=== PATIENT | female | born 1955 | race Caucasian/White ===

== ENCOUNTER 2023-06-17 09:43 | Observation (INO) ==
--- NOTE | 2023-06-17 10:41 | Emergency Department Note ---
Impression & Plan Palpitation, Hypertension, Chest pain, Dyspnea ED Provider Note ED Provider Note NAME: DAVIS SÁNCHEZ AGE:67 SEX: Female : 1955 ARRIVES VIA: Private vehicle INFORMANT: Patient ED PROVIDER(s): Chacha Pavon DO CHIEF COMPLAINT: Palpitations, chest pain, shortness of breath HPI: This is a 67-year-old female presents emergency department due to concern for chest pain, palpitations, shortness of breath. Patient states she first began noticing palpitations a month ago. She follows with rheumatology due to a history of sarcoidosis and was noted to have high blood pressure at that time. Patient stated she had had an upcoming appointment with her PCP. She contacted her PCP sooner and her usual losartan was increased. She then saw a different primary care provider in the office who scheduled her for an echo and referred her to cardiology. She states her echo was abnormal and cardiology also stated that she had episodes of tachycardia and PVCs additionally. She states no other change in medications. No other recent illness. No prior heart history although notes first-degree family member did in their 50s of heart problems. She states she feels a sense of "thundering and pause" in her chest with the palpitations giving her a central and slightly left-sided chest pain. She states symptoms seem worse at night or laying down. She thought initially this was related to reflux so she did try sitting up and taking Tums however that did not significantly improve her symptoms. She states cardiology scheduled her for an outpatient CAT scan of the chest and also suggested she needed an MRI of her heart. PAST MEDICAL HISTORY:See Below PAST SURGICAL HISTORY:See Below FAMILY HISTORY:See Below SOCIAL HISTORY:See Below HOME MEDICATIONS:See Below ALLERGIES:See Below VITALS:See Below PHYSICAL EXAMINATION: GENERAL: alert, uncomfortable appearing, well nourished, no distress, non-toxic EYE EXAM: normal conjunctiva, PERRL and EOM's grossly intact OROPHARYNX: no exudate, no erythema, lips, buccal mucosa, and tongue normal and mucous membranes are moist NECK: supple, no nuchal rigidity, no adenopathy, non-tender LUNGS: Clear to auscultation. Normal chest wall mechanics, no w/r/r HEART: no murmurs, S1 normal and S2 normal ABDOMEN: abdomen soft, non-tender, normo-active bowel sounds, no masses, no rebound or guarding. BACK: Back is symmetrical on inspection and there is no deformity, no midline tenderness, no CVA tenderness. SKIN: no rashes, petechiae, orbruising UPPER EXTREMITIES: upper extremities are grossly normal. FROM, nml pulses b/l. LOWER EXTREMITIES: No pitting edema. FROM, nml pulses b/l. NEURO EXAM: Normal sensorium, cranial nerves II-XII grossly intact, normal speech, no facial droop,nogross weakness of arms, no gross weakness of legs. Gross sensation intact. No ataxia. Vital Signs: reviewed and remarkable Differential Diagnosis: acute coronary syndrome, pericarditis, pulmonary embolus, aortic dissection, pneumonia, pneumothorax, musculoskeletal pain, shingles, GERD, GI bleed, as well as others were considered MEDICAL DECISION MAKING: This is a 67 yo female who presents to the ER with concern for chest pain and palpitations. Patient afebrile vital signs stable. Labs drawn and sent, IV established, EKG performed at bedside interpreted by me and patient monitored on telemetry. Patient complained of persistent palpitations and was noted to have occasional PVCs with compensatory pause on telemetry. Patient's lab reassuring. Did review recent outpatient cardiology evaluation by Dr. Torres as well as outpatient echo. I did contact on-call not any cardiology Dr. Kohler, who stated Dr. Torres was available. Dr. Torres contacted via [place] text and recommended admission for additional monitoring and possible further evaluation. He did recommend pursuing CT of the chest without contrast that he had previously ordered for the patient as an outpatient. All results and plan were discussed with the patient at bedside. She was hemodynamically stable throughout. Patient verbalized understanding of the plan and was in agreement. Case discussed with the hospitalist team for additional evaluation and management. Consultation(s): 1345: Discussed with Dr. Kohler, [place] processor grain. 1348: Discussed with Dr. Torres via [place] text. He would like patient admitted. He does still want the CT chest as previously ordered. 1410: Discussed with VIKTOR Cope with [facility] hospitalist team. ER Treatment Provided: See below Diagnostics Interpreted By Me: -ECG: Normal sinus at 71, normal axis, normal intervals, appearance of incomplete right bundle branch block, nonspecific ST/T wave -Cardiac Monitoring: An order was placed for continuous cardiac monitoring. The monitor shows a rate of 66 with normal sinus rhythm. -Laboratory studies: As stated above and show below. Triage Nursing Note Reviewed Prior/Outside Records Reviewed - recent outpatient echo Past Med/Surg History Medical History Dyslipidemia Aortic calcification Colon cancer screening 09/18/2022, next in 5 years Nausea and vomiting after administration of anesthetic agent Arthritis H/O sigmoidoscopy Hx of migraines Complex regional pain syndrome HLD (hyperlipidemia) HTN (hypertension) Right rotator cuff tear Hemorrhoids On methotrexate therapy History of sarcoidosis PULMONARY Surgical History H/O hemorrhoidectomy History of anesthesia reaction HIP SURGERY>STAYED OVERNIGHT D/T OXYGEN LEVEL DROPPED History of esophagogastroduodenoscopy (EGD) History of colonoscopy H/O inguinal hernia repair History of tooth extraction History of tonsillectomy and adenoidectomy History of revision of total replacement of left knee joint History of total left knee replacement History of right hip replacement RT Hx of hysterectomy [place] teeth removed History of umbilical hernia repair X 2 Family History Grandfather (Maternal) Colorectal cancer Hypertension Father Myocardial infarction Grandmother (Maternal) Heart disease Denies family history of Ovarian cancer Prostate cancer Breast cancer Social History Smoking Status: Never smoker Age Quit Using Tobacco: 22; Second Hand Exposure: No; Do You Dip or Chew Tobacco: No; Tobacco Cessation Education Requested by Patient: No Hx Alcohol Use: No Hx Substance Use: No Preferred Language: Czech Rotary Operator Required: No Beliefs That Will Affect Care: None marital status: Current Living Situation: Alone Current Living Situation Comment: AND SON current occupational status: retired current occupation: [employer] Other Information That Helps Us Care for You: No Feels Safe at Home: Yes Childhood Exposure to Second-Hand Smoke: Yes Diet: regular Diet Comment: 1500 Calorie Diet caffeine: Yes Dental Care, Regularly: No Physical Activity Frequency: Daily Seatbelt Use: always Sunscreen Use: Yes Assistive Devices: Glasses Allergies Allergies Allergy/AdvReac Type Severity Reaction Status Date / Time ibuprofen Allergy Intermediate Hives Verified 05/29/23 09:30 celecoxib [From Celebrex] Allergy Mild GI issues Verified 05/29/23 09:30 Home Meds Home Medications Medication Instructions Recorded Confirmed multivitamin 1 tab PO QDL 05/29/23 06/17/23 turmeric 2 cap PO QDL 05/29/23 06/17/23 calcium citrate 315 mg 2 tab PO QAM 06/17/23 06/17/23 calcium-vitamin D3 6.25 mcg (250 unit) tablet (Citracal + Vitamin D Maximum) cranberry extract 500 mg capsule 500 mg PO QDL 06/17/23 06/17/23 (Cranberry Concentrate) folic acid 1 mg tablet 1 mg PO QAM 06/17/23 06/17/23 magnesium 250 mg tablet 250 mg PO HS 06/17/23 06/17/23 metoprolol succinate 25 mg 25 mg PO QAM 06/17/23 06/17/23 tablet,extended release 24 hr olmesartan 40 mg tablet 40 mg PO QAM 06/17/23 06/17/23 potassium 99 mg tablet 99 mg PO HS 06/17/23 06/17/23 rosuvastatin 10 mg tablet 10 mg PO QAM 06/17/23 06/17/23 vitamin B complex 1 tab PO QAM 06/17/23 06/17/23 Previous Rx's Medication Instructions Recorded methotrexate sodium 2.5 mg tablet 15 mg (6 x 2.5 mg) PO .COMPLEX #75 11/20/22 tabs zoledronic acid 5 mg/100 mL in See Rx Instructions IV .annually 05/22/23 mannitol 5 %-water intravenous #100 mL piggybck (Reclast) Results & Data (ED) Vital Signs Vital Signs - 24 hr 06/17/23 09:46 06/17/23 10:04 06/17/23 10:22 Temperature 36.6 C Temperature Source Temporal Artery Scan Pulse Rate 95 H 62 62 Pulse Rate [Apical] Pulse Rhythm [Apical] Pulse Strength [Apical] Respiratory Rate 20 13 Respiratory Effort / Characteristics Non-Labored Respiratory Depth Normal Respiratory Pattern Blood Pressure 202/99 H 203/105 H Blood Pressure [Right Arm] Blood Pressure Mean 133 137 Blood Pressure Mean [Right Arm] Blood Pressure Position [Right Arm] Pulse Oximetry 95 97 Oxygen Delivery Method Room Air Room Air Sepsis Recent Fever Within 48 Hours No Sepsis New/Unexplained Change in Mental Status No Sepsis Action Taken by Nursing No Action Required 06/17/23 10:30 06/17/23 11:00 06/17/23 11:30 Temperature Temperature Source Pulse Rate 80 60 62 Pulse Rate [Apical] Pulse Rhythm [Apical] Pulse Strength [Apical] Respiratory Rate 20 19 14 Respiratory Effort / Characteristics Respiratory Depth Respiratory Pattern Blood Pressure 197/80 H 166/78 H 155/73 H Blood Pressure [Right Arm] Blood Pressure Mean 119 107 100 Blood Pressure Mean [Right Arm] Blood Pressure Position [Right Arm] Pulse Oximetry 98 96 95 Oxygen Delivery Method Room Air Room Air Room Air Sepsis Recent Fever Within 48 Hours Sepsis New/Unexplained Change in Mental Status Sepsis Action Taken by Nursing 06/17/23 11:43 06/17/23 12:00 06/17/23 13:00 Temperature Temperature Source Pulse Rate 56 L 59 L Pulse Rate [Apical] 56 L Pulse Rhythm [Apical] Regular Pulse Strength [Apical] Normal Respiratory Rate 17 16 14 Respiratory Effort / Characteristics Non-Labored Spontaneous Respiratory Depth Normal Respiratory Pattern Regular Blood Pressure 156/67 H 169/65 H Blood Pressure [Right Arm] 173/69 H Blood Pressure Mean 96 99 Blood Pressure Mean [Right Arm] 103 Blood Pressure Position [Right Arm] Semi-fowlers Pulse Oximetry 97 97 95 Oxygen Delivery Method Room Air Room Air Room Air Sepsis Recent Fever Within 48 Hours Sepsis New/Unexplained Change in Mental Status Sepsis Action Taken by Nursing 06/17/23 13:31 Temperature Temperature Source Pulse Rate 65 Pulse Rate [Apical] Pulse Rhythm [Apical] Pulse Strength [Apical] Respiratory Rate 20 Respiratory Effort / Characteristics Respiratory Depth Respiratory Pattern Blood Pressure 183/67 H Blood Pressure [Right Arm] Blood Pressure Mean 105 Blood Pressure Mean [Right Arm] Blood Pressure Position [Right Arm] Pulse Oximetry 97 Oxygen Delivery Method Room Air Sepsis Recent Fever Within 48 Hours Sepsis New/Unexplained Change in Mental Status Sepsis Action Taken by Nursing Laboratory Data 06/17/23 10:00 06/17/23 10:00 Lab Results 06/17/23 06/17/23 Range/Units 10:00 12:13 WBC 4.87 (4.8-10.8) K/ul RBC 4.24 (4.20-5.40) M/uL Hgb 13.6 (12.0-16.0) g/dl Hct 39.8 (37.0-47.0) % MCV 93.9 (80.0-100.0) fL MCH 32.1 (25.0-34.0) pg MCHC 34.2 (32.0-36.0) g/dL RDW Std Deviation 48.6 H (36.4-46.3) fL RDW Coeff of Giuseppe 14.2 (11.5-14.5) % Plt Count 197 (130-400) K/uL MPV 10.2 (9.4-12.4) fL Immature Gran % (Auto) 0.2 % Neut % (Auto) 63.1 % Lymph % (Auto) 28.3 % [place] % (Auto) 6.4 % Eos % (Auto) 1.0 % Baso % (Auto) 1.0 % Neut # (Auto) 3.07 (1.40-6.50) K/uL Lymph # (Auto) 1.38 (1.20-3.40) K/uL [place] # (Auto) 0.31 (0.11-0.59) K/uL Eos # (Auto) 0.05 (0.00-0.50) K/uL Baso # (Auto) 0.05 (0.00-0.20) K/uL Immature Gran # (Auto) 0.01 (0.01-0.20) K/uL D-Dimer Cancelled < 190 Sodium 135 L (136-145) mmol/L Potassium 4.0 (3.5-5.1) mmol/L Chloride 101 (98-107) mmol/L Carbon Dioxide 25 (21-32) mmol/L Anion Gap 9 (3-11) BUN 10 (6-23) mg/dl Creatinine 0.64 (0.6-1.2) mg/dl Est Cr Clr Drug Dosing 88.2 ml/min Est GFR ( Amer) 107.8 ml/min Est GFR (Non-Af Amer) 93.0 ml/min BUN/Creatinine Ratio 15.6 (10-20) Glucose 95 (70-99(Fasting)) mg/dl Calcium 9.8 (8.6-10.3) mg/dl Magnesium 2.0 (1.7-2.4) mg/dl Total Bilirubin 0.6 (0.2-1.0) mg/dl AST 45 H (13-39) U/L ALT 49 (7-52) U/L Alkaline Phosphatase 85 (34-104) U/L Troponin I High Sens 3.9 (0-14) pg/ml B-Natriuretic Peptide 184 H (0-100) pg/ml Total Protein 7.3 (6.0-8.3) gm/dl Albumin 4.6 (3.4-5.0) gm/dl Globulin 2.7 (2.5-4.0) gm/dl Albumin/Globulin Ratio 1.7 (0.9-2) Lipase 18 (11-82) U/L TSH 1.261 (0.300-4.500) uIu/ml Administered Medications Discontinued Medications Acetaminophen (Acetaminophen 325 Mg Tab) 650 mg PO NOW STA Stop: 06/17/23 14:55 Last Admin: 06/17/23 15:01 Dose: 650 mg Documented By: JESSIKA Famotidine (Famotidine 20mg/5ml Iv Push) 20 mg IV NOW ONE Stop: 06/17/23 15:01 Last Admin: 06/17/23 15:01 Dose: 20 mg Documented By: JESSIKA Hydrochlorothiazide (Hydrochlorothiazide 25 Mg Tab) 25 mg PO NOW STA Stop: 06/17/23 15:24 Last Admin: 06/17/23 16:00 Dose: 25 mg Documented By: NRDanita Imaging Data Radiologist's Impression: Chest CT 06/17/23 13:50 CT chest diagnostic wo con CT DOSE: 338.55 mGy.cm CLINICAL HISTORY: 67 years-old Female with chest pain, palpitations. Acute chest pain with cardiac palpitations TECHNIQUE: Multiaxial CT images of the chest were performed without contrast. A dose lowering technique was utilized adhering to the principles of ALARA. COMPARISON: Radiographs 05/10/2023 FINDINGS: Unremarkable thyroid. No lymphadenopathy. Mild cardiomegaly. Mild coronary artery calcifications. Left ventricular apical mural fibrofatty changes suggestive of prior infarct. Trace pericardial effusion. No thoracic aortic aneurysm. There is no pneumothorax, pleural effusion or overt pulmonary edema. Mild dependent subsegmental bibasilar atelectasis versus scarring. There are no suspicious pulmonary nodule or mass is identified. Central airways are patent. No acute upper abdominal abnormality. Unremarkable soft tissues. Mild chronic- appearing thoracic wedge deformities. No acute fracture. IMPRESSION: Mild cardiomegaly without acute process of the chest. ACT 112: Negative or not required by law. Electronically signed by: Rustam Tapia M.D. 06/17/2023 2:51 PM Discharge Plan Visit Data Chief Complaint: Cardiac Assessment Stated Complaint: HEART PROBLEMS, SOB, CHEST PAINS ED Provider: Chacha Pavon Discharge Problem: Palpitation, Hypertension, Chest pain, Dyspnea Patient Disposition: Admitted As Inpatient Discharge Instructions Interventions: ED Discharge Assessment Last Done: 06/17/23 16:07
[2023-06-17 10:54] LABS: Basophils # (auto) 0.05 K/uL (0.00-0.20); Eosinophils # (auto) 0.05 K/uL (0.00-0.50); Hematocrit (blood only) 39.8 % (37.0-47.0); Hemoglobin 13.6 g/dl (12.0-16.0); Immature Granulocytes # (auto) 0.01 K/uL (0.01-0.20); Immature Granulocytes % (auto) 0.2 %; Lymphocytes # (auto) 1.38 K/uL (1.20-3.40); Lymphocytes % (auto) 28.3 %; Mean Corpuscular Hemoglobin 32.1 pg (25.0-34.0); Mean Corpuscular Hgb Conc 34.2 g/dL (32.0-36.0); Mean Corpuscular Volume 93.9 fL (80.0-100.0); Mean Platelet Volume 10.2 fL (9.4-12.4); Monocytes # (auto) 0.31 K/uL (0.11-0.59); Monocytes % (auto) 6.4 %; Neutrophils # (auto) 3.07 K/uL (1.40-6.50); Neutrophils % (auto) 63.1 %; Platelet Count 197 K/uL (130-400); RDW Coefficient of Variation 14.2 % (11.5-14.5); RDW Standard Deviation 48.6 fL (36.4-46.3); Red Blood Count 4.24 M/uL (4.20-5.40); White Blood Count 4.87 K/ul (4.8-10.8)
[2023-06-17 11:15] LABS: Albumin Globulin Ratio 1.7 (0.9-2); Albumin Level 4.6 gm/dl (3.4-5.0); BUN Creatinine Ratio 15.6 (10-20); Bilirubin,Total 0.6 mg/dl (0.2-1.0); Calcium 9.8 mg/dl (8.6-10.3); Creatinine Clr Calc Pharmacy 88.2 ml/min; Est GFR (African American) 107.8 ml/min; Globulin 2.7 gm/dl (2.5-4.0); Total Protein 7.3 gm/dl (6.0-8.3)
[2023-06-17 11:20] LABS: Troponin I High Sensitivity 3.9 pg/ml (0-14)
[2023-06-17 11:27] LABS: Thyroid Stimulating Hormone 1.261 uIu/ml (0.300-4.500)
--- NOTE | 2023-06-17 13:04 | Electrocardiogram Report ---
Test Reason : Blood Pressure : / mmHG Vent. Rate : 071 BPM Atrial Rate : 071 BPM P-R Int : 154 ms QRS Dur : 098 ms QT Int : 360 ms P-R-T Axes : 074 003 049 degrees QTc Int : 391 ms Normal sinus rhythm with sinus arrhythmia Incomplete right bundle branch block Abnormal ECG When compared with ECG of 29-MAY-2023 09:26, Premature ventricular complexes are no longer Present Incomplete right bundle branch block is now Present Confirmed by Eliseo Kohler ([id number]) on 06/17/2023 1:03:35 PM Referred By: Tong Torres Confirmed By:Eliseo Kohler
[2023-06-17 13:10] LABS: D Dimer < 190 ug/L FEU (0-500)
--- NOTE | 2023-06-17 14:20 | History & Physical Report ---
Date of Service June 17, 2023 Assessment & Plan (1) Chest pain: Plan: -Admit to med/tele -Currently hypertensive at 187/81 but otherwise stable -Presented to the ED due to persistent substernal/right chest pain with associated NAVA, palpitations, and dizziness since last night -Patient has been experiencing these symptoms for the past 2 months, is being followed by her PCP and cardiology -Initial cardiac workup including ECG and high sen trop are negative for signs of ACS, but cannot rule out other cardiac etiologies at this time -Patient's pain is reproducible on palpation and can be improved with use of antacids, cannot rule out musculoskeletal pain and/or reflux -Spoke with Cardiology, consult placed, appreciate their assistance, initial plan as follows: >Admit for BP control, continued monitoring on tele >Monitor for Cardiac and non-cardiac etiologies of her symptoms >They will see while admitted, may end up obtaining CHING and Cardiac Cath prior to discharge >Outpatient Cardiac MRI -Will obtain a repeat high sen trop on admission for further monitoring -Electrolytes are stable, continue to monitor -Will start daily famotidine for possible reflux -PRN tylenol for muscle pain -Will make NPO at Midnight in case of heart cath/CHING tomorrow -SQ lovenox for DVT PPX -HH diet -AM CBC, BMP, mag (2) Dyspnea: Plan: -Unclear etiology at this time -Cannot rule out cardiac etiology with her other symptoms and recent TTE showing mod-severe mitral regurgitation, mild pulm hypertension, and severe left atrial dilation -Does have a hx of Pulmonary Sarcoidosis but CT of the chest wo con is negative for acute findings -Is without pleuritic chest pain, has been stable on RA, and has been without hypotension, low suspicion for PE at this time -Continue current treatment plan and monitor for improvement (3) Hypertension: Plan: -Has been having ongoing issues with poorly controlled hypertension -Was recently started on 40 mg PO Olmesartan, losartan has been held -Was started on 5 mg Amlodipine, but she has been having significant leg swelling with this -Will continue her Olmesartan and metoprolol -Hold amlodipine for now -Patient's HR is in the 50's since arrival, cannot increase her dose of metoprolol or start another beta fletcher or calcium channel fletcher -Will start 25 mg PO HCTZ with first dose given now -Continue to monitor BP and adjust regimen as needed -Follow Cardiology consult (4) Palpitations: Plan: -Continue metoprolol -Follow Cardiology consult (5) Dyslipidemia: Plan: -Continue statin (6) History of sarcoidosis: Plan: -Continue methotrexate Plan The patient was discussed with Dr. Muñiz at the time of the admission History of Present Illness Chief Complaint: Palpitations/chest pain/dizziness Primary Care Provider: JOSE Harris Sahara is a 67 year old female with a PMH significant for Sarcoidosis (follows with Rheumatology) on methotrexate, HTN, dyslipidemia who presented to the [facility] with complaints of recurrent heart palpitations, chest pain, and dizziness/NAVA. She remained stable while in the ED. Labs including CBC, CMP, high sen trop were unremarkable. ECG showed sinus rhythm with sinus arrhythmia and new incomplete RBBB. The ED staff spoke with Dr. Torres who asked for a non-con CT of the chest and admission to Medicine for further evaluation. At the time of the exam the patient was sitting in bed in no acute distress with her son sitting bedside. She states that she started to develop increased HTN, heart palpitations, NAVA, and intermittent chest discomfort over the past 2 months. She has had her dose of Losartan increased and was started on metoprolol with some improvement in symptoms. She was seen by Dr. Torres in the Cardiology Clinic on 05/29/23 who ordered a holter monitor and advised the patient to come to the ED for worsening or persistent symptoms. Last night the patient noticed substernal chest discomfort with radiation into the right chest. She has been experiencing this chest discomfort intermittently over the past 2 months. The pain is often exacerbated with lying flat and improved with sitting upright and taking Tums. She woke up this am and was still experiencing the pain, prompting ED evaluation. The patient denies radiation of the pain to other parts of her body and denies recent fever, chills, productive cough, neck/facial pain, abd pain, nausea, vomiting, dysuria, hematuria, melena, diarrhea, LE swelling, and recent trauma. She is a full code and would want her and son to make medical decisions for her if she cannot make decisions for herself. Please refer to Dr. Muñiz's attestation for any changes to the treatment plan Allergies Allergy/AdvReac Type Severity Reaction Status Date / Time ibuprofen Allergy Intermediate Hives Verified 05/29/23 09:30 celecoxib [From Celebrex] Allergy Mild GI issues Verified 05/29/23 09:30 Home Medications Medication Instructions Recorded Confirmed Type folic acid 1 mg tablet 1 mg PO DAILY #90 tabs 07/17/22 05/29/23 Rx methotrexate sodium 2.5 mg tablet 15 mg (6 x 2.5 mg) PO .COMPLEX #75 11/20/22 05/29/23 Rx tabs losartan 25 mg tablet 25 mg PO QAM 05/22/23 05/29/23 History olmesartan 40 mg tablet 40 mg PO DAILY #30 tabs 05/22/23 05/29/23 Rx zoledronic acid 5 mg/100 mL in See Rx Instructions IV .annually 05/22/23 05/29/23 Rx mannitol 5 %-water intravenous #100 mL piggybck (Reclast) rosuvastatin 10 mg tablet 10 mg PO DAILY #90 tabs 05/23/23 05/29/23 Rx calcium citrate-vitamin D3 2 tab PO DAILY 05/29/23 05/29/23 History [Citracal Regular] cranberry extract 1 tab PO DAILY 05/29/23 05/29/23 History magnesium 1 tab PO DAILY 05/29/23 05/29/23 History multivitamin 1 tab PO DAILY 05/29/23 05/29/23 History potassium chloride 1 tab PO DAILY 05/29/23 05/29/23 History turmeric 2 cap PO DAILY 05/29/23 05/29/23 History metoprolol succinate 25 mg 25 mg PO DAILY #30 tabs 05/31/23 05/31/23 Rx tablet,extended release 24 hr Past Med/Surg History Medical History Dyslipidemia Aortic calcification Colon cancer screening Nausea and vomiting after administration of anesthetic agent Arthritis H/O sigmoidoscopy Hx of migraines Complex regional pain syndrome HLD (hyperlipidemia) HTN (hypertension) Right rotator cuff tear Hemorrhoids On methotrexate therapy History of sarcoidosis Surgical History H/O hemorrhoidectomy History of anesthesia reaction History of esophagogastroduodenoscopy (EGD) History of colonoscopy H/O inguinal hernia repair History of tooth extraction History of tonsillectomy and adenoidectomy History of revision of total replacement of left knee joint History of total left knee replacement History of right hip replacement Hx of hysterectomy [place] teeth removed History of umbilical hernia repair Family History Grandfather (Maternal) Colorectal cancer Hypertension Father Myocardial infarction Grandmother (Maternal) Heart disease Denies family history of Ovarian cancer Prostate cancer Breast cancer Social History Smoking Status: Never smoker Age Quit Using Tobacco: 22; Second Hand Exposure: Yes (IN THE PAST); Do You Dip or Chew Tobacco: No; Hx Alcohol Use: No Hx Substance Use: No Preferred Language: Lebanese 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 Beliefs That Will Affect Care: None marital status: Current Living Situation: Family Current Living Situation Comment: AND SON current occupational status: retired current occupation: [employer] Feels Safe at Home: Yes Childhood Exposure to Second-Hand Smoke: Yes Diet: regular Diet Comment: 1500 Calorie Diet caffeine: Yes Dental Care, Regularly: No Physical Activity Frequency: Daily Seatbelt Use: always Sunscreen Use: Yes Assistive Devices: Glasses Physical Exam Physical Exam: Physical Exam: General: In no acute distress, stated age, well-nourished, good hygiene HEENT: Normocephalic, atraumatic, no scleral icterus, pupils around round, symmetrical, and reactive to light, moist mucus membranes, negative JVD, trachea midline, no thyromegaly Chest/Pulm: No respiratory distress, symmetrical chest expansion, clear breath sounds throughout Cardiac: regular rate, irregular rhythm, 3/6 systolic murmur noted Abdomen: Negative for ascites and bruising, normoactive bowel sounds, soft, non-tender to palpation throughout Musculoskeletal: Patient with reproducible pain on palpation of the substernal region and right chest, Symmetrical and without signs of acute trauma, upper and lower extremities with full ROM, no atrophy, spasticity, or flaccidity Extremities: Radial, dorsalis pedis, and posterior tibial pulses are intact and symmetrical, no edema noted in the BL LE's Skin: Warm, dry, no rashes , lesions, or scars noted Neuro: Alert and oriented to person, place, month, year, and president, no focal defects, no tremors noted Psych: No acute distress, calm and cooperative during the exam Results & Data Results & Data Vital Signs (Past 12 Hours) Vital Signs Temp Pulse Pulse Resp BP BP Pulse Ox 06/17/23 13:31 65 20 183/67 H 97 06/17/23 13:00 59 L 14 169/65 H 95 06/17/23 12:00 56 L 16 156/67 H 97 06/17/23 11:43 56 L 17 173/69 H 97 06/17/23 11:30 62 14 155/73 H 95 06/17/23 11:00 60 19 166/78 H 96 06/17/23 10:30 80 20 197/80 H 98 06/17/23 10:22 62 06/17/23 10:04 62 13 203/105 H 97 06/17/23 09:46 36.6 C 95 H 20 202/99 H 95 O2 Del Method 06/17/23 13:31 Room Air 06/17/23 13:00 Room Air 06/17/23 12:00 Room Air 06/17/23 11:43 Room Air 06/17/23 11:30 Room Air 06/17/23 11:00 Room Air 06/17/23 10:30 Room Air 06/17/23 10:22 06/17/23 10:04 Room Air 06/17/23 09:46 Room Air Laboratory Results Abnormal lab results 06/17/23 Range/Units 10:00 RDW Std Deviation 48.6 H (36.4-46.3) fL Sodium 135 L (136-145) mmol/L AST 45 H (13-39) U/L B-Natriuretic Peptide 184 H (0-100) pg/ml Diagnostic Findings Chest CT 06/17/23 13:50 CT chest diagnostic wo con CT DOSE: 338.55 mGy.cm CLINICAL HISTORY: 67 years-old Female with chest pain, palpitations. Acute chest pain with cardiac palpitations TECHNIQUE: Multiaxial CT images of the chest were performed without contrast. A dose lowering technique was utilized adhering to the principles of ALARA. COMPARISON: Radiographs 05/10/2023 FINDINGS: Unremarkable thyroid. No lymphadenopathy. Mild cardiomegaly. Mild coronary artery calcifications. Left ventricular apical mural fibrofatty changes suggestive of prior infarct. Trace pericardial effusion. No thoracic aortic aneurysm. There is no pneumothorax, pleural effusion or overt pulmonary edema. Mild dependent subsegmental bibasilar atelectasis versus scarring. There are no suspicious pulmonary nodule or mass is identified. Central airways are patent. No acute upper abdominal abnormality. Unremarkable soft tissues. Mild chronic- appearing thoracic wedge deformities. No acute fracture. IMPRESSION: Mild cardiomegaly without acute process of the chest. ACT 112: Negative or not required by law. Electronically signed by: Rustam Tapia M.D. 06/17/2023 2:51 PM ECG Additional Comments: Normal sinus rhythm with sinus arrhythmia Incomplete right bundle branch block Abnormal ECG When compared with ECG of 29-MAY-2023 09:26, Premature ventricular complexes are no longer Present Incomplete right bundle branch block is now Present Code Status & VTE Plan Code Status Full code VTE Prophylaxis Plan VTE Prophylaxis will be ordered: Yes Supervising Physician Co-Signing Physician Notes Patient seen and examined, chart reviewed, case discussed with Anatoliy Urena PA-C and I agree with the assessment and plan as above except as otherwise noted Labs and images reviewed Sahara is a 67-year-old female with a past medical history of sarcoidosis on methotrexate, hyperlipidemia, hypertension who presents with recurrent palpitations/chest discomfort/dizziness/dyspnea/presyncope. Patient has a normal high-sensitivity troponin; EKG with new conduction change/iRBBB. Case was reviewed with Dr. Torres who follows the patient as an outpatient. At last evaluation 05/29 was noted to have mitral valve insufficiency on her echo, and concern was raised for cardiac sarcoidosis. Patient is recommended for admission for a noncontrast CT and will have continuous overnight telemetry. Has a history of presyncopal events? Arrhythmia genic. Patient should be seen for follow-up cardiac MRI however this is not available at this institution. Beta-fletcher continued. Pt intolerant to Amlodipine due to leg swelling. Is on olmesartan which she took today. Additional options include nitrates/jeannie/hctz. Will trial low dose of hctz. agree with assessment and management above. PG Care Time/CCT Total # of Minutes Spent Total Time Spent with Patient: Total time spent is greater than 50% in coordination of care (as documented) at patient's floor/unit and/or counseling patient: Coding Level of Care Code 45120 INT INP/OBS CARE 3/75MIN History Comprehensive Exam Comprehensive Medical Decision Making High Complexity Diagnoses Chest pain R07.9 Dyspnea R06.00 Hypertension I10 Palpitations R00.2 Dyslipidemia E78.5 History of sarcoidosis Z86.2
--- NOTE | 2023-06-17 14:52 | CT Scan Report ---
CT chest diagnostic wo con CT DOSE: 338.55 mGy.cm CLINICAL HISTORY: 67 years-old Female with chest pain, palpitations. Acute chest pain with cardiac p alpitations TECHNIQUE: Multiaxial CT images of the chest were performed without contrast. A dose lowering techni que was utilized adhering to the principles of ALARA. COMPARISON: Radiographs 05/10/2023 FINDINGS: Unremarkable thyroid. No lymphadenopathy. Mild cardiomegaly. Mild coronary artery calcifica tions. Left ventricular apical mural fibrofatty changes suggestive of prior infarct. Trace pericardia l effusion. No thoracic aortic aneurysm. There is no pneumothorax, pleural effusion or overt pulmonary edema. Mild dependent subsegmental biba silar atelectasis versus scarring. There are no suspicious pulmonary nodule or mass is identified. Ce ntral airways are patent. No acute upper abdominal abnormality. Unremarkable soft tissues. Mild chronic-appearing thoracic wedg e deformities. No acute fracture. IMPRESSION: Mild cardiomegaly without acute process of the chest. ACT 112: Negative or not required by law. Electronically signed by: Rustam Tapia M.D. 06/17/2023 2:51 PM
[2023-06-17] MEDS: ACETAMINOPHEN 325 MG TAB PO STA (15:01)
[2023-06-17] MEDS: FAMOTIDINE 20MG/5ML IV PUSH IV ONE (15:01)
[2023-06-17] MEDS: hydroCHLOROthiazide 25 MG TAB PO STA (16:00)
--- NOTE | 2023-06-17 17:22 | Cardiology Consultation ---
Date of Consultation June 17, 2023 Assessment & Plan (1) Dyspnea: Multifactorial. History of sarcoid lung disease although current CT scan does not suggest exacerbation. She does have a small pericardial effusion on the CT scan which may contribute and certainly could be related to her chest pain as well. She also has significant valvular heart disease. She will continue on monitor. We will exclude ACS. Tentatively plan for CHING to evaluate her mitral regurgitation. May also undergo cardiac catheterization during this admission or in the near future depending on results of her CHING. (2) Chest pain: Somewhat atypical. More pleuritic in nature (changes with position). However, we do need to exclude ACS. She has further outpatient workup planned for her sarcoid and for any cardiac involvement. Continue her current regimen with methotrexate. (3) Hypertension: Blood pressure is very elevated. She should continue with metoprolol succinate ER 25 mg daily, olmesartan 40 mg daily, and add amlodipine. (4) Palpitation: Need to keep her on the monitor. Prior frequent PVCs and NSVT. Given her very large left atrium she is also at risk for atrial fibrillation/atrial flutter and has known PACs as well. Beta-fletcher to suppress arrhythmia. Further recommendations pending evolution of her clinical course. (5) Mitral valve insufficiency, acquired: This is moderate to severe. Tentatively plan for CHING evaluation tomorrow morning. Will have impact on what additional inpatient workup is required at this time. She does not have significant volume overload today. (6) Dyslipidemia: At least intermediate risk and may be high risk if she has underlying coronary disease. CT scan suggest coronary calcification which may be associated with coronary artery disease. She shall continue on rosuvastatin 10 mg daily. History of Present Illness Reason for Consultation: Chest pains, shortness of breath, palpitations. Attending Physician: Remington Muñiz MD History of Present Illness This is a pleasant 67-year-old female with a history of chronic sarcoidosis which was initially diagnosed while she was in her 20s and involved a long. She had erythema nodosum. She was placed on steroids at that time and had been managed with immune modulating medications. Prior therapy failed and she was placed on methotrexate. She recently relocated to the area from [place] and I saw her for the first time last month. She was referred for abnormal findings on an echocardiogram and it was noted that she had symptoms including near syncope, palpitations, tachycardia, elevated blood pressure, dizziness, shortness of breath, pounding heartbeat and atypical chest pain. She had a cardiac event monitor which demonstrated occasional PACs and PVCs with nonsustained ventricular tachycardia up to 6 beats. Her initial EKG demonstrated frequent PVCs. I had her undergo CT scan. I also requested cardiac MRI to evaluate for involvement of the heart but this has not yet been performed. Unfortunately, she is continued with significant symptoms despite the fact that I added beta-fletcher to her regimen. Patient again had right-sided chest pain, palpitations, dizziness, and shortness of breath when she went to bed last night. She decided to seek additional evaluation in the emergency department. She underwent CT scan as we previously had planned. She has had a lightheadedness and dizziness but no syncope. No orthopnea, PND, or edema. Also without fever or chills. EKG: Normal sinus rhythm, incomplete right bundle branch block. No PVCs. superintendent storage area: Occasional PACs, NSVT Echocardiogram: EF 65 to 70%, normal size LV. Mild LVH. Possible grade 2 diastolic dysfunction. Severe left atrial enlargement Normal RV size and function. Normal right atrium. Myxomatous appearing mitral valve with moderate to severe mitral regurgitation Mild tricuspid regurgitation CT scan chest without contrast: Mild coronary calcification LV apical mural fibrofatty changes. May represent old infarction. Trace pericardial effusion Atelectasis versus scar Mild chronic thoracic wedge deformities Allergies Allergy/AdvReac Type Severity Reaction Status Date / Time ibuprofen Allergy Intermediate Hives Verified 05/29/23 09:30 celecoxib [From Celebrex] Allergy Mild GI issues Verified 05/29/23 09:30 Home Medications Medication Instructions Recorded Confirmed Type methotrexate sodium 2.5 mg tablet 15 mg (6 x 2.5 mg) PO .COMPLEX #75 11/20/22 06/17/23 Rx tabs zoledronic acid 5 mg/100 mL in See Rx Instructions IV .annually 05/22/23 06/17/23 Rx mannitol 5 %-water intravenous #100 mL piggybck (Reclast) multivitamin 1 tab PO QDL 05/29/23 06/17/23 History turmeric 2 cap PO QDL 05/29/23 06/17/23 History calcium citrate 315 mg 2 tab PO QAM 06/17/23 06/17/23 History calcium-vitamin D3 6.25 mcg (250 unit) tablet (Citracal + Vitamin D Maximum) cranberry extract 500 mg capsule 500 mg PO QDL 06/17/23 06/17/23 History (Cranberry Concentrate) folic acid 1 mg tablet 1 mg PO QAM 06/17/23 06/17/23 History magnesium 250 mg tablet 250 mg PO HS 06/17/23 06/17/23 History metoprolol succinate 25 mg 25 mg PO QAM 06/17/23 06/17/23 History tablet,extended release 24 hr olmesartan 40 mg tablet 40 mg PO QAM 06/17/23 06/17/23 History potassium 99 mg tablet 99 mg PO HS 06/17/23 06/17/23 History rosuvastatin 10 mg tablet 10 mg PO QAM 06/17/23 06/17/23 History vitamin B complex 1 tab PO QAM 06/17/23 06/17/23 History Patient History Medical History Dyslipidemia Aortic calcification Colon cancer screening 09/18/2022, next in 5 years Nausea and vomiting after administration of anesthetic agent Arthritis H/O sigmoidoscopy Hx of migraines Complex regional pain syndrome HLD (hyperlipidemia) HTN (hypertension) Right rotator cuff tear Hemorrhoids On methotrexate therapy History of sarcoidosis PULMONARY Surgical History H/O hemorrhoidectomy History of anesthesia reaction HIP SURGERY>STAYED OVERNIGHT D/T OXYGEN LEVEL DROPPED History of esophagogastroduodenoscopy (EGD) History of colonoscopy H/O inguinal hernia repair History of tooth extraction History of tonsillectomy and adenoidectomy History of revision of total replacement of left knee joint History of total left knee replacement History of right hip replacement RT Hx of hysterectomy [place] teeth removed History of umbilical hernia repair X 2 Family History Grandfather (Maternal) Colorectal cancer Hypertension Father Myocardial infarction Grandmother (Maternal) Heart disease Denies family history of Ovarian cancer Prostate cancer Breast cancer Social History Smoking Status: Never smoker Age Quit Using Tobacco: 22; Second Hand Exposure: No; Do You Dip or Chew Tobacco: No; Tobacco Cessation Education Requested by Patient: No Hx Alcohol Use: No Hx Substance Use: No Preferred Language: Kiswahili Shorts Sifter Required: No Beliefs That Will Affect Care: None marital status: Current Living Situation: Alone Current Living Situation Comment: AND SON current occupational status: retired current occupation: [employer] Other Information That Helps Us Care for You: No Feels Safe at Home: Yes Childhood Exposure to Second-Hand Smoke: Yes Diet: regular Diet Comment: 1500 Calorie Diet caffeine: Yes Dental Care, Regularly: No Physical Activity Frequency: Daily Seatbelt Use: always Sunscreen Use: Yes Assistive Devices: Glasses Review of Systems Review of Systems: Negative except as per HPI Physical Exam Constitutional: WD/WN, vitals as above Eyes: Extraocular muscles intact. Sclera are anicteric. ENMT: Oral mucosa is pink and dry Neck: No JVD or bruits Respiratory: Bibasilar dullness, dry crackles, no wheezing or rhonchi. Cardiovascular: Regular rate and rhythm. Grade 2/6 systolic murmur heard near the apex. S4 gallop. Musculoskeletal: no cyanosis or clubbing, extremities motor strength 5/5 Neurologic: Cognition is intact. Speech is fluent. No focal deficits. No tremor Psychiatric: A+Ox3, euthymic affect (Anxious) Results & Data Vital Signs (Past 12 Hours) Vital Signs Temp Pulse Pulse Resp BP BP BP 06/17/23 17:04 36.6 C 53 L 18 145/67 H 06/17/23 16:57 68 06/17/23 16:00 50 L 12 159/75 H 06/17/23 15:30 57 L 17 172/73 H 06/17/23 15:02 58 L 14 187/81 H 06/17/23 13:31 65 20 183/67 H 06/17/23 13:00 59 L 14 169/65 H 06/17/23 12:00 56 L 16 156/67 H 06/17/23 11:43 56 L 17 173/69 H 06/17/23 11:30 62 14 155/73 H 06/17/23 11:00 60 19 166/78 H 06/17/23 10:30 80 20 197/80 H 06/17/23 10:22 62 06/17/23 10:04 62 13 203/105 H 06/17/23 09:46 36.6 C 95 H 20 202/99 H Pulse Ox O2 Del Method 06/17/23 17:04 95 Room Air 06/17/23 16:57 06/17/23 16:00 97 06/17/23 15:30 95 06/17/23 15:02 95 Room Air 06/17/23 13:31 97 Room Air 06/17/23 13:00 95 Room Air 06/17/23 12:00 97 Room Air 06/17/23 11:43 97 Room Air 06/17/23 11:30 95 Room Air 06/17/23 11:00 96 Room Air 06/17/23 10:30 98 Room Air 06/17/23 10:22 06/17/23 10:04 97 Room Air 06/17/23 09:46 95 Room Air PG Care Time/CCT Total # of Minutes Spent Total Time Spent with Patient: Total time spent is greater than 50% in coordination of care (as documented) at patient's floor/unit and/or counseling patient: Coding Level of Care Code 65272 INT INP/OBS CARE 2/55MIN Diagnoses Dyspnea R06.00 Chest pain R07.9 Hypertension I10 Palpitation R00.2 Mitral valve insufficiency, acquired I34.0 Dyslipidemia E78.5
[2023-06-17] MEDS: ENOXAPARIN INJ 40 MG/0.4 ML SYR SQ SCH (21:13)
[2023-06-18 01:51] LABS: Hematocrit (blood only) 37.2 % (37.0-47.0); Hemoglobin 12.5 g/dl (12.0-16.0); Mean Corpuscular Hemoglobin 31.6 pg (25.0-34.0); Mean Corpuscular Hgb Conc 33.6 g/dL (32.0-36.0); Mean Corpuscular Volume 93.9 fL (80.0-100.0); Mean Platelet Volume 10.1 fL (9.4-12.4); Platelet Count 177 K/uL (130-400); RDW Coefficient of Variation 14.2 % (11.5-14.5); RDW Standard Deviation 48.3 fL (36.4-46.3); Red Blood Count 3.96 M/uL (4.20-5.40)
[2023-06-18 02:05] LABS: BUN Creatinine Ratio 20.8 (10-20); Calcium 9.5 mg/dl (8.6-10.3); Creatinine Clr Calc Pharmacy 73.3 ml/min; Est GFR (African American) 93.3 ml/min; Est GFR (Non-African American) 80.5 ml/min; Magnesium 1.9 mg/dl (1.7-2.4); Potassium 3.5 mmol/L (3.5-5.1)
[2023-06-18] MEDS: FAMOTIDINE 20 MG in SYRINGE 3 ML IV ONE (02:13)
[2023-06-18] MEDS: ACETAMINOPHEN 1,000 MG/100 ML VIAL IV STA (02:13)
--- NOTE | 2023-06-18 07:14 | Anesthesiology Consultation ---
Date of Service June 18, 2023 Assessment & Plan Chart Review Chart Review: Acceptable Risk for Surgery and Patient NOT seen in Pre Admission Testing Consults Requested none ASA ASA3 Proposed Anesthesia Anesthesia Type: MAC Risk / Benefits Reviewed With: PT / POA / Parent / Guardian, Accepts Plan and Informed Consent Obtained History Surgery Operation Date: 06/18/23 07:15 Proposed Procedures p Transesophageal Echo w/Anesthesia - Eliseo Kohler MD Height/Weight Height: 5 ft 5 in Weight: 71.8 kg Allergies Allergy/AdvReac Type Severity Reaction Status Date / Time ibuprofen Allergy Intermediate Hives Verified 05/29/23 09:30 celecoxib [From Celebrex] Allergy Mild GI issues Verified 05/29/23 09:30 Medications Home Medications Medication Instructions Recorded Confirmed Last Taken methotrexate sodium 2.5 mg tablet 15 mg (6 x 2.5 mg) PO .COMPLEX #75 11/20/22 06/17/23 06/14/23 tabs zoledronic acid 5 mg/100 mL in See Rx Instructions IV .annually 05/22/23 06/17/23 Unknown mannitol 5 %-water intravenous #100 mL piggybck (Reclast) multivitamin 1 tab PO QDL 05/29/23 06/17/23 06/16/23 turmeric 2 cap PO QDL 05/29/23 06/17/23 06/16/23 calcium citrate 315 mg 2 tab PO QAM 06/17/23 06/17/23 06/17/23 calcium-vitamin D3 6.25 mcg (250 unit) tablet (Citracal + Vitamin D Maximum) cranberry extract 500 mg capsule 500 mg PO QDL 06/17/23 06/17/23 06/16/23 (Cranberry Concentrate) folic acid 1 mg tablet 1 mg PO QAM 06/17/23 06/17/23 06/17/23 magnesium 250 mg tablet 250 mg PO HS 06/17/23 06/17/23 06/16/23 metoprolol succinate 25 mg 25 mg PO QAM 06/17/23 06/17/23 06/17/23 tablet,extended release 24 hr olmesartan 40 mg tablet 40 mg PO QAM 06/17/23 06/17/23 06/17/23 potassium 99 mg tablet 99 mg PO HS 06/17/23 06/17/23 06/16/23 rosuvastatin 10 mg tablet 10 mg PO QAM 06/17/23 06/17/23 06/17/23 vitamin B complex 1 tab PO QAM 06/17/23 06/17/23 06/17/23 Active Medications Generic Name Dose Route Start Last Admin Trade Name Dora PRN Reason Stop Dose Admin Enoxaparin Sodium 40 mg 06/17/23 21:00 06/17/23 21:13 Enoxaparin Inj 40 Mg/0.4 Ml Syr SQ 07/17/23 20:59 40 mg HS EMMETT Administration NPO Date Last Intake of Fluids: 06/17/23 Time Last Intake of Fluids: 21:00 Date Last Intake of Solids: 06/17/23 Time Last Intake of Solids: 18:00 Past Medical History Medical History Dyslipidemia Aortic calcification Colon cancer screening 09/18/2022, next in 5 years Nausea and vomiting after administration of anesthetic agent Arthritis H/O sigmoidoscopy Hx of migraines Complex regional pain syndrome HLD (hyperlipidemia) HTN (hypertension) Right rotator cuff tear Hemorrhoids On methotrexate therapy History of sarcoidosis PULMONARY Exercise / Class Metabolic Activity II 4-5 Yardwork/Stairs/Walk up hill Past Family History Family History Grandfather (Maternal) Colorectal cancer Hypertension Father Myocardial infarction Grandmother (Maternal) Heart disease Denies family history of Ovarian cancer Prostate cancer Breast cancer Past Surgical History Surgical History H/O hemorrhoidectomy History of anesthesia reaction HIP SURGERY>STAYED OVERNIGHT D/T OXYGEN LEVEL DROPPED History of esophagogastroduodenoscopy (EGD) History of colonoscopy H/O inguinal hernia repair History of tooth extraction History of tonsillectomy and adenoidectomy History of revision of total replacement of left knee joint History of total left knee replacement History of right hip replacement RT Hx of hysterectomy [place] teeth removed History of umbilical hernia repair X 2 Past Anesthesia History No Hx of Anesthesia Complications and No Family Hx of Anesthesia Complications History of PONV No Hx of PONV and No Hx of Motion Sickness Social History Smoking Status: Never smoker tobacco type: cigarettes Do You Dip or Chew Tobacco: No Hx Alcohol Use: No Hx Substance Use: No substance use type: does not use Physical Exam Vital Signs Last Vital Signs Temp 36.3 C L 06/18/23 02:38 Pulse 66 06/18/23 07:02 Resp 18 06/18/23 07:02 BP 155/73 H 06/18/23 07:02 Pulse Ox 99 06/18/23 07:02 O2 Del Method Room Air 06/18/23 07:02 ENMT Mouth: no dentition abnormality Thyromental Distance: > or= 3.5 Finger Breadths Mallampati Class: II Neck normal visual inspection Respiratory normal respiratory effort Auscultation: lungs clear to auscultation bilaterally Cardiovascular Rate/Rhythm: regular rate and regular rhythm Psychiatric Orientation: alert Testing Laboratory Results 06/18/23 01:28 06/18/23 01:27
[2023-06-18] MEDS ORDERED: PROPOFOL IV EMULSION 10 MG/ML 20 ML VIAL IV ONE (07:53)
[2023-06-18] MEDS ORDERED: PHENYLEPHRINE 100MCG/ML 10ML SYR IV ONE (07:53)
[2023-06-18] MEDS ORDERED: LIDOCAINE 2% 2 ML VIAL/AMP(20MG/ML) INFIL ONE (07:53)
--- NOTE | 2023-06-18 08:04 | Hospitalist Progress Note ---
Date of Service June 18, 2023 Assessment & Plan (1) Chest pain: Plan: -troponin without elevation on trend chest pain felt to be musculoskeletal. control blood pressure previously engaged with cardiology and workup to eval for cardiac sarcoid and define etiology of severe MR CHING confirmed severe mitral regurgitation planning on left heart catheterization on 06/19/2023 - daily famotidine for possible reflux -PRN tylenol for muscle pain -SQ lovenox for DVT PPX (2) Dyspnea: Plan: -Unclear etiology at this time, can be associated with MR/pulmonary htn likely severe MR also -Does have a hx of Pulmonary Sarcoidosis but CT of the chest wo con is negative for acute findings therefore pulmonary sarcoidosis flare was ruled out (3) Hypertension: Plan: metoprolol and HCTZ, patient has been on escalating doses of losartan changed to olmesartan by her primary care providerformulary changed back to losartan while inpatient (4) Dyslipidemia: Plan: -Continue statin (5) History of sarcoidosis: Plan: -Continue methotrexate Admission and Anticipated Discharge Date Admission Date: June 17, 2023 Subjective Patient tolerated echocardiographic procedure well confirming severe mitral regurgitation. After consultation with cardiology we will proceed with cardiac catheterization in preparation for upcoming valve replacement surgery. Patient confirms that her previous symptoms of palpitations have reduced since starting beta-fletcher therapy Physical Exam Physical Exam: Card exam is regular with a sternal systolic murmur at the left chest. Some mild reproducible chest discomfort which likely makes believe her chest pain may be musculoskeletal or component of it might be. Lungs are clear there is no respiratory distress Results & Data Results & Data Vital Signs (Past 12 Hours) Vital Signs Temp Pulse Pulse Pulse Resp BP Pulse Ox 06/18/23 07:45 66 18 131/49 L 100 06/18/23 07:40 55 L 06/18/23 07:35 66 18 133/59 L 100 06/18/23 07:02 66 18 155/73 H 99 06/18/23 02:38 97.3 F L 51 L 16 117/69 95 06/18/23 00:19 97.9 F 50 L 18 124/73 96 06/17/23 22:00 49 L O2 Del Method 06/18/23 07:45 Room Air 06/18/23 07:40 06/18/23 07:35 Room Air 06/18/23 07:02 Room Air 06/18/23 02:38 Room Air 06/18/23 00:19 Room Air 06/17/23 22:00 Laboratory Results Reviewed CBC Reviewed chemistry PG Care Time/CCT Total # of Minutes Spent Total Time Spent with Patient: Total time spent is greater than 50% in coordination of care (as documented) at patient's floor/unit and/or counseling patient: Coding Level of Care Code 11245 SUB INP/OBS CARE 2/35MIN Diagnoses Chest pain R07.9 Dyspnea R06.00 Hypertension I10 Dyslipidemia E78.5 History of sarcoidosis Z86.2
--- NOTE | 2023-06-18 08:21 | Anesthesiology Progress Note ---
Date of Service June 18, 2023 Anesthesia Post Procedure Vital Signs Vital Signs: Temp Pulse Pulse Pulse Resp BP BP 06/18/23 08:00 65 18 138/55 L 06/18/23 07:45 66 18 131/49 L 06/18/23 07:40 55 L 06/18/23 07:35 66 18 133/59 L 06/18/23 07:02 66 18 155/73 H 06/18/23 02:38 36.3 C L 51 L 16 117/69 06/18/23 00:19 36.6 C 50 L 18 124/73 06/17/23 22:00 49 L 06/17/23 19:28 36.6 C 52 L 18 159/70 H 06/17/23 17:04 36.6 C 53 L 18 145/67 H 06/17/23 16:57 68 06/17/23 16:00 50 L 12 159/75 H 06/17/23 15:30 57 L 17 172/73 H 06/17/23 15:02 58 L 14 187/81 H 06/17/23 13:31 65 20 183/67 H 06/17/23 13:00 59 L 14 169/65 H 06/17/23 12:00 56 L 16 156/67 H 06/17/23 11:43 56 L 17 06/17/23 11:30 62 14 155/73 H 06/17/23 11:00 60 19 166/78 H 06/17/23 10:30 80 20 197/80 H 06/17/23 10:22 62 06/17/23 10:04 62 13 203/105 H 06/17/23 09:46 36.6 C 95 H 20 202/99 H BP Pulse Ox O2 Del Method 06/18/23 08:00 99 Room Air 06/18/23 07:45 100 Room Air 06/18/23 07:40 06/18/23 07:35 100 Room Air 06/18/23 07:02 99 Room Air 06/18/23 02:38 95 Room Air 06/18/23 00:19 96 Room Air 06/17/23 22:00 06/17/23 19:28 95 Room Air 06/17/23 17:04 95 Room Air 06/17/23 16:57 06/17/23 16:00 97 06/17/23 15:30 95 06/17/23 15:02 95 Room Air 06/17/23 13:31 97 Room Air 06/17/23 13:00 95 Room Air 06/17/23 12:00 97 Room Air 06/17/23 11:43 173/69 H 97 Room Air 06/17/23 11:30 95 Room Air 06/17/23 11:00 96 Room Air 06/17/23 10:30 98 Room Air 06/17/23 10:22 06/17/23 10:04 97 Room Air 06/17/23 09:46 95 Room Air Transfer of Care Handoff Completed per policy Notes Mental Status: alert / awake / arousable Patient Amnestic to Procedure: Yes Nausea / Vomiting: adequately controlled Pain: adequately controlled Airway Patency, RR, SpO2: stable & adequate BP & HR: stable & adequate Hydration State: stable & adequate Anesthetic Complications: no major complications apparent
--- NOTE | 2023-06-18 08:40 | Electrocardiogram Report ---
Test Reason : Blood Pressure : / mmHG Vent. Rate : 056 BPM Atrial Rate : 056 BPM P-R Int : 168 ms QRS Dur : 098 ms QT Int : 444 ms P-R-T Axes : 078 015 034 degrees QTc Int : 428 ms Sinus bradycardia Otherwise normal ECG When compared with ECG of 17-JUN-2023 09:56, Incomplete right bundle branch block is no longer Present Confirmed by Eliseo Kohler ([id number]) on 06/18/2023 8:40:17 AM Referred By: Tong Torres Confirmed By:Eliseo Kohler
[2023-06-18] MEDS ORDERED: FAMOTIDINE 200 MG/20 ML VIAL IV SCH (09:00)
[2023-06-18] MEDS: FOLIC ACID 1 MG TAB PO SCH (09:24)
[2023-06-18] MEDS: METOPROLOL SUCC 25MG EXT REL TAB PO SCH (09:24)
[2023-06-18] MEDS: hydroCHLOROthiazide 25 MG TAB PO SCH (09:25)
[2023-06-18] MEDS: ROSUVASTATIN CALCIUM 10 MG TAB PO SCH (09:25)
[2023-06-18] MEDS: LOSARTAN POTASSIUM 50 MG TAB PO SCH (09:26)
[2023-06-18] MEDS: FAMOTIDINE 20 MG in SYRINGE 3 ML IV SCH (09:26)
--- NOTE | 2023-06-18 09:47 | XCELERA ---
[id number] [id number]
--- NOTE | 2023-06-18 16:32 | Cardiology Progress Note ---
Date of Service June 18, 2023 Assessment & Plan (1) Chest pain: Plan: There is a reproducible component which is likely chronic inflammatory changes. This can be treated with nonsteroidals at this point. She also had slight elevation in troponin. Trivial pericardial effusion on the CT scan but no significant effusion on the CHING. May be some pleuritic pain which would also respond to nonsteroidals. Since she has positive troponin and will need a elma terization in anticipation of mitral valve surgery we recommend proceeding with coronary angiography tomorrow. Further recommendations pending results. (2) Hypertension: Plan: Blood pressure is better controlled. Continue on current medical regimen and we will make appropriate changes pending results of her catheterization. (3) Palpitation: Plan: Review of the monitor shows that at times she has frequent PACs. No PVCs noted and no NSVT. Therefore the beta-fletcher must be improving her ventricular ectopy which is desirable. She has not had any further near syncopal episodes since the beta-fletcher was started. (4) Mitral valve insufficiency, acquired: Plan: This is fairly substantial and there is mitral valve prolapse. We will be making referral to cardiac surgery regarding mitral valve repair/replacement. Will likely wait until after the outpatient cardiac MRI is completed to evaluate for sarcoid heart disease. At the present, no significant volume overload. Continue current medical regimen and we will adjust post catheterization. (5) Dyslipidemia: Plan: Continue rosuvastatin. If we find significant coronary disease then we will likely need to increase the dose. Plan Cardiac cath tomorrow. Likely discharge afterwards with plan for outpatient cardiac MRI and referral for valve repair/replacement. Admission and Anticipated Discharge Date Admission Date: June 17, 2023 Subjective Patient has done well overnight. She underwent CHING demonstrating severe mitral regurgitation. Tolerated fairly well although she did have some recurrent chest pain last night. Her troponin was slightly elevated. At the moment she has no complaints and we discussed further workup and management. I recommend coronary angiography to exclude significant coronary disease in anticipation that she will undergo workup for mitral valve surgery. We still plan for outpatient cardiac MRI regarding potential sarcoid heart disease. She understands all of this and wishes to proceed with catheterization. The risk, benefits, and alternatives were discussed in detail. She voices no other complaints or concerns at this time. Review of Systems Review of Systems: Negative except as per HPI Physical Exam Constitutional: WD/WN, vitals as above Neck: No JVD Respiratory: Clear to auscultation bilaterally. No wheezing, rhonchi, or rales. Cardiovascular: Regular rate and rhythm. Grade 2/6 systolic murmur. S4 gallop. No edema. Chest (Breasts): Additional Comments: Chest is tender to palpation right greater than left. Musculoskeletal: no cyanosis or clubbing, extremities motor strength 5/5 Neurologic: Cognition is intact. Speech is fluent. No focal deficits. No tremor. Psychiatric: A+Ox3, euthymic affect Results & Data Vital Signs (Past 12 Hours) Vital Signs Temp Pulse Pulse Pulse Resp BP Pulse Ox 06/18/23 15:26 71 06/18/23 15:14 36.8 C 76 18 153/74 H 95 06/18/23 11:29 36.6 C 63 18 124/68 97 06/18/23 08:00 65 18 138/55 L 99 06/18/23 07:45 66 18 131/49 L 100 06/18/23 07:40 55 L 06/18/23 07:35 66 18 133/59 L 100 06/18/23 07:02 66 18 155/73 H 99 O2 Del Method 06/18/23 15:26 06/18/23 15:14 Room Air 06/18/23 11:29 Room Air 06/18/23 08:00 Room Air 06/18/23 07:45 Room Air 06/18/23 07:40 06/18/23 07:35 Room Air 06/18/23 07:02 Room Air PG Care Time/CCT Total # of Minutes Spent Total Time Spent with Patient: Total time spent is greater than 50% in coordination of care (as documented) at patient's floor/unit and/or counseling patient: Coding Level of Care Code 72450 SUB INP/OBS CARE 2/35MIN Diagnoses Chest pain R07.9 Hypertension I10 Palpitation R00.2 Mitral valve insufficiency, acquired I34.0 Dyslipidemia E78.5
[2023-06-18] MEDS: BENZOCAINE/TETRACAIN/BUTAM 50 APPLN/5 GM CAN EXT ONE (17:37)
[2023-06-18] MEDS: MAGNESIUM OXIDE 400 MG TAB PO SCH (20:07)
[2023-06-18] MEDS ORDERED: NON-FORMULARY MEDICATION (Potassium 99 mg Tablet) PO SCH (21:00)
[2023-06-19 06:25] LABS: Hematocrit (blood only) 36.6 % (37.0-47.0); Hemoglobin 12.8 g/dl (12.0-16.0); Mean Corpuscular Hemoglobin 32.1 pg (25.0-34.0); Mean Corpuscular Volume 91.7 fL (80.0-100.0); Mean Platelet Volume 10.4 fL (9.4-12.4); Platelet Count 205 K/uL (130-400); RDW Coefficient of Variation 14.3 % (11.5-14.5); Red Blood Count 3.99 M/uL (4.20-5.40); White Blood Count 4.21 K/ul (4.8-10.8)
[2023-06-19 06:45] LABS: BUN Creatinine Ratio 29.9 (10-20); Calcium 9.6 mg/dl (8.6-10.3); Creatinine Clr Calc Pharmacy 82.6 ml/min; Est GFR (African American) 106.2 ml/min; Est GFR (Non-African American) 91.6 ml/min; Magnesium 2.1 mg/dl (1.7-2.4); Potassium 3.9 mmol/L (3.5-5.1)
[2023-06-19 07:13] VITALS: TEMP 98.2
[2023-06-19 08:24] VITALS: RESP 18
[2023-06-19] MEDS: FAMOTIDINE 20 MG TAB PO SCH (08:43)
--- NOTE | 2023-06-19 08:44 | Pre Anesthesia Assessment ---
Date of Service June 19, 2023 Pre Sedation Assessment Vital Signs Temp Pulse Pulse Pulse Resp BP BP 06/19/23 08:20 69 18 118/77 06/19/23 07:12 36.8 C 65 17 106/67 06/19/23 04:38 36.7 C 63 18 120/63 06/18/23 23:38 36.7 C 59 L 18 112/54 L 06/18/23 22:25 63 06/18/23 20:03 36.5 C 81 20 154/64 H 06/18/23 15:26 71 06/18/23 15:14 36.8 C 76 18 153/74 H 06/18/23 11:29 36.6 C 63 18 124/68 Pulse Ox O2 Del Method 06/19/23 08:20 95 Room Air 06/19/23 07:12 98 Room Air 06/19/23 04:38 97 Room Air 06/18/23 23:38 96 Room Air 06/18/23 22:25 06/18/23 20:03 97 Room Air 06/18/23 15:26 06/18/23 15:14 95 Room Air 06/18/23 11:29 97 Room Air Cardiovascular RRR, no murmur, no edema Additional Comments: 2/6 SM Respiratory normal respiratory effort, lungs clear to auscultation Pre-Sedation Airway Assessment Smoking Status: Never smoker Hx Sleep Apnea: No Short, Thick Neck: No Thyromental Distance: > or= 3.5 Finger Breadths Oral Cavity: + WNL Mallampati Class: II ASA: ASA3 NPO Status Date of Last Intake of Fluids: 06/18/23 Time of Last Intake of Fluids: 18:00 Date of Last Intake of Solid Food: 06/18/23 Time of Last Intake of Solid Foods: 17:00 Notes The planned sedation has been discussed with the patient. Informed Consent was obtained. I have identified the patient, determined the appropriateness of sedation and have assessed the patient immediately prior to the procedure. All medicine(s) and interventions are by my order.
[2023-06-19] MEDS: niCARdipine HCL INJ 2.5 MG/ML 10 ML AMP ONE (09:26)
[2023-06-19] MEDS: NITROGLYCERIN/D5W 100MCG/ML 20ML SYR ONE (09:27)
[2023-06-19] MEDS: MIDAZOLAM HCL 1 MG/ML 2ML VIAL ONE (09:28)
[2023-06-19] MEDS: fentaNYL citrate PF 100 MCG/2 ML VIAL ONE (09:28)
[2023-06-19] MEDS: HEPARIN (PORCINE) 1000 UNIT/ML 10 ML (CATH LAB USE ONLY) ONE (09:28)
[2023-06-19] MEDS: OPTIRAY 350 ONE (09:29)
[2023-06-19] MEDS: ASPIRIN 81 MG CHEW ONE (09:30)
--- NOTE | 2023-06-19 09:59 | Cardiology Progress Note ---
Date of Service June 19, 2023 Assessment & Plan (1) Chest pain: Plan: This is nonanginal. It could be related to inflammation including costochondritis and or mild pericarditis. She can utilize nonsteroidals at home [id number]. Coronaries are normal. (2) Dyspnea: Plan: This is secondary to mitral valve disease and pulmonary sarcoidosis. I feel the worsening symptoms are likely secondary to the mitral regurgitation. She will be referred for mitral valve repair/replacement as an outpatient. (3) Hypertension: Plan: Continue current blood pressure regimen. We have added HCTZ 25 mg and she will remain on metoprolol succinate ER. We may need to add an MEET inhibitor or angiotensin receptor fletcher as an outpatient. (4) Palpitations: Plan: Her PVCs and NSVT have resolved with the addition of beta-fletcher. However she continues with PACs which she also feels. She has a very enlarged left atrium which makes atrial arrhythmia likely to continue at this point. We can increase the metoprolol succinate as her heart rate allows in the future if needed. Plan Patient is appropriate for discharge at this time. Outpatient cardiac MRI to evaluate for evidence of cardiac sarcoid Outpatient referral to cardiac surgery to follow the results of the MRI. Patient will follow-up with me as previously scheduled. That should be after the cardiac MRI is completed. Admission and Anticipated Discharge Date Admission Date: June 17, 2023 Subjective Patient underwent cardiac catheterization which revealed no significant coronary disease. Her symptoms have resolved for the moment. At this time, I have discussed with her referral for mitral valve disease and she will continue on her current medical regimen. She feels comfortable with that plan and is appropriate for discharge at this time. Review of Systems Review of Systems: Negative except as per HPI Physical Exam Constitutional: WD/WN, vitals as above Neck: No JVD Respiratory: Clear to auscultation bilaterally. No wheezing, rhonchi, or rales. Cardiovascular: Regular rate and rhythm. Grade 2/6 systolic murmur. S4 gallop. No edema. Chest (Breasts): Additional Comments: Chest is tender to palpation right greater than left. Musculoskeletal: no cyanosis or clubbing, extremities motor strength 5/5 Neurologic: Cognition is intact. Speech is fluent. No focal deficits. No tremor. Psychiatric: A+Ox3, euthymic affect Results & Data Vital Signs (Past 12 Hours) Vital Signs Temp Pulse Pulse Pulse Resp BP BP 02/07/24 09:45 60 18 144/54 H 06/19/23 09:22 63 06/19/23 08:20 69 18 118/77 06/19/23 07:12 36.8 C 65 17 106/67 06/19/23 04:38 36.7 C 63 18 120/63 06/18/23 23:38 36.7 C 59 L 18 112/54 L 06/18/23 22:25 63 Pulse Ox O2 Del Method 06/19/23 09:45 97 Room Air 06/19/23 09:22 06/19/23 08:20 95 Room Air 06/19/23 07:12 98 Room Air 06/19/23 04:38 97 Room Air 06/18/23 23:38 96 Room Air 06/18/23 22:25 PG Care Time/CCT Total # of Minutes Spent Total Time Spent with Patient: Total time spent is greater than 50% in coordination of care (as documented) at patient's floor/unit and/or counseling patient: Coding Level of Care Code 64569 SUB INP/OBS CARE 2/35MIN Diagnoses Chest pain R07.9 Dyspnea R06.00 Hypertension I10 Palpitations R00.2
--- NOTE | 2023-06-19 11:09 | Post Anesthesia Assessment ---
Date of Service June 19, 2023 Post Sedation Assessment Vital Signs Temp Pulse Pulse Pulse Resp BP BP 06/19/23 12:00 78 18 129/71 06/19/23 11:44 76 18 125/65 06/19/23 11:30 67 18 156/58 H 06/19/23 11:15 76 18 110/78 06/19/23 11:00 76 18 121/62 06/19/23 10:45 57 L 18 132/78 06/19/23 10:30 58 L 18 142/64 H 06/19/23 10:15 58 L 18 142/59 H 06/19/23 10:00 55 L 18 125/64 06/19/23 09:45 60 18 144/54 H 06/19/23 09:22 63 06/19/23 08:20 69 18 118/77 06/19/23 07:12 36.8 C 65 17 106/67 06/19/23 04:38 36.7 C 63 18 120/63 06/18/23 23:38 36.7 C 59 L 18 112/54 L 06/18/23 22:25 63 06/18/23 20:03 36.5 C 81 20 154/64 H 06/18/23 15:26 71 06/18/23 15:14 36.8 C 76 18 153/74 H Pulse Ox O2 Del Method 06/19/23 12:00 95 Room Air 06/19/23 11:44 96 Room Air 06/19/23 11:30 96 Room Air 06/19/23 11:15 96 Room Air 06/19/23 11:00 96 Room Air 06/19/23 10:45 96 Room Air 06/19/23 10:30 98 Room Air 06/19/23 10:15 98 Room Air 06/19/23 10:00 98 Room Air 06/19/23 09:45 97 Room Air 06/19/23 09:22 06/19/23 08:20 95 Room Air 06/19/23 07:12 98 Room Air 06/19/23 04:38 97 Room Air 06/18/23 23:38 96 Room Air 06/18/23 22:25 06/18/23 20:03 97 Room Air 06/18/23 15:26 06/18/23 15:14 95 Room Air Recovery Score Activity: Moves 4 extremities Respiration: Deep Breath/Cough Circulation: +/-20% PreAnes Value Consciousness: Fully Awake Oxygen Saturation: > 92% On Room Air Post Anesthesia Score: 10 Discharge Sedation Level of Care: Fast Track Phase II Post Sedation Plan On clinical assessment, the patient appears to have tolerated the sedation without complications. Patient is recovering as anticipated. Patient will continue to be monitored by nursing and may be discharged when sedation discharge criteria are met per below protocol. Upon Completions of procedure up to 15 minutes continue every 5 minute vital signs and the P.A.R. score; then discharge to a Phase I or Fast Track to Phase II per the following guidelines: * Discharge Patient to appropriate Phase II area if PAR is 8 or greater or return to pre- procedure baseline. The post - procedure orders will be as directed. * If PAR score is less than 8 or not return to pre-procedure baseline then patient will follow Phase I monitoring till PAR is reached for Phase II. The Phase I may be done in procedure room or may call to secure a Phase I area. * If naloxone or flumazenil are used for reversal, hold in Phase I for continued monitoring from when last reversal dose was given for a minimum of 60 minutes or longer pending the nurse and/or physician discretion of patient condition before discharge to Phase II. Please call the Sedation Physician to re-evaluate and complete post-note for discharge to Phase II area. Do NOT discharge from procedure sedation or Phase 1 until post- sedation evaluation note is complete by procedure /sedation MD Sedation Discharge Instructions to be given to the patient at discharge to home. [facility] Procedure Codes (Charges) Sedation/Anesthesia Procedure 1: Sedation/Anesthesia: 87983 Mod Sedation by the same physician;Init15 Min Child Age 5 & Up (Initial 15 min, start 908) Total Sedation Time (minutes): 20 Procedure 2: Sedation/Anesthesia: 38793 Mod Sedation by the same physician; Ea [id number] Minutes (Additional 5 min, and 0929) Total Sedation Time (minutes): 20
[2023-06-19 12:23] VITALS: O2SAT 95
--- NOTE | 2023-06-19 12:53 | Cardiac Catheterization ---
[facility] Data: Producer Cardiac Status Clinical evaluation leading to the procedure CAD Presenation: Unstable angina Anginal Classification: CCS III Heart Failure: No Cardiogenic Shock within 24 Hours: No Cardiac Arrest within 24 Hours: No Imaging Studies Past 6 Months: Yes Coronary Anatomy Dominant: Left Left Main (% Stenosis): Normal LAD (% Stenosis): Normal D1 (% Stenosis): Normal D2 (% Stenosis): Normal Circumflex (% Stenosis): Normal OM1 (% Stenosis): Normal OM2 (% Stenosis): Normal L PL1 (% Stenosis): Normal L PDA (% Stenosis): Normal RCA (% Stenosis): Normal Ramus (% Stenosis): Normal Diagnostic Physicians Name: Tong Torres MD, PhD Closure Device Percutaneous Entry Location: Radial Closure Device: Radial Band Recommendations: Medical Therapy and/or Counseling Cardiac Cath Procedure Full Procedure Date June 19, 2023 Pre-Procedure Diagnosis Pre-Procedure Diagnosis: Valvular Disease AUC Score AUC Score: 07 Post-Procedure Diagnosis Post-Procedure Diagnosis: Normal Coronary Arteries Procedure(s) Performed Procedure(s) Performed: Coronary Angiography and Ultrasound Guided Vascular Access Bank Manager Tong Torres MD, PhD Estimated Blood Loss Estimated Blood Loss: 5 mL Medication(s) Medication(s): Fentanyl, Heparin, Lidocaine 1%, Nicardipine, Nitroglycerin and Versed Summary of Findings Brief description: Patient was brought to the cardiac catheterization suite where she was shaved and prepped in a sterile fashion. Sedated using IV Versed and fentanyl. Soft tissues of the right wrist were anesthetized using 2 mL of 1% Xylocaine. Using the ultrasound for guidance (image saved), the right radial artery was accessed using a modified Seldinger technique and a 6 Cameroonian radial artery glide sheath was placed. Patient was provided anticoagulation with IV heparin and antispasmodics including nicardipine and nitroglycerin. All catheters were advanced and exchanged over a 0.035 J-tip wire. Initial advancement was with a Wholey wire. Left coronary angiography was performed in orthogonal views with a 5 Cameroonian Bryant 4 diagnostic catheter and a 5 Cameroonian JL 3.5 diagnostic catheter. Right coronary angiography in orthogonal views with a 5 Cameroonian Bryant 4 diagnostic catheter. Diagnostic catheters were removed. Radial artery sheath was removed. Hemostasis was obtained using the TR band. Patient remained hemodynamically stable and asymptomatic. She was returned to the recovery area. This ended the case. Coronary angiography findings: JFW-imfbt-szqmsou vessel trifurcating into LAD, circumflex, and ramus. No angiographically evident disease. BQB-hvlsz-hpasnuv and transapical. Provides a large septal branch and 2 diagonals of small to medium caliber. Distal vessels are tortuous. There is no angiographically evident disease in the LAD or its branches. ZPe-gclyp-jmqzmpz and dominant. Travels in AV groove where it gives a small OM1 followed by a medium caliber OM 2. Continues as a large AV groove vessel distally providing a medium caliber posterolateral branch and then a large caliber branching PDA. Distal branch vessels are tortuous. There is no angiographically evident disease in the circumflex or its branches. Upbss-pggcb-gxigkua and branching vessel without disease. RCA-medium to large caliber nondominant vessel which does terminate in a branching posterolateral. There is no angiographically evident disease in the RCA or its branches. Distal vessel is tortuous. Summary: 1. Normal epicardial coronary arteries with tortuosity suggestive of uncontrolled hypertension. 2. Guideline directed medical therapy for primary prevention of coronary disease. 3. Continue workup for potential sarcoid heart disease and probable referral for mitral valve repair. Hemodynamics Rest Ao:: 112/64 mmHg Final Ao: 92/61 mmHg LV: Not performed Recommendations Recommendations: Medical Therapy and/or Counseling Radiation Exposure (mGy) 534 mGy, fluoroscopy time 4.2 minutes Contrast (mls) 64 mL Anesthesia 2 mg IV Versed, 50 mcg IV fentanyl. Start time 908, end time 928 Procedural Complication(s) None Disposition Recovery Room\PACU I attest to the content of the Intraoperative Record and any orders documented therein. Any exceptions are noted below. [facility] Card Cath Procedure Codes Cardiac Catheterization Procedure 1: Cardiovascular Cath Procedures: 14825 Coronaries Therapeutic Services & Ancillary Procedure 1: Cardiovascular Tx and Anc Procedures: 90725 Ultrasonic Guidance Vascular Access Moderate Sedation Procedure 1: Sedation/Anesthesia: 99860 Mod Sedation by the same physician;Init15 Min Child Age 5 & Up (Initial 15 min, start 908) Procedure 2: Sedation/Anesthesia: 99916 Mod Sedation by the same physician; Ea [id number] Minutes (Additional 5 min, end time 928) PG Care Time/CCT Total # of Minutes Spent Total Time Spent with Patient: Total time spent is greater than 50% in coordination of care (as documented) at patient's floor/unit and/or counseling patient:
[2023-06-19 14:31] VITALS: BP 152/66; PULSE 72
--- NOTE | 2023-06-19 16:48 | Discharge Summary ---
Date of Service June 19, 2023 Admission HPI Per Admitting Provider Sahara is a 67 year old female with a PMH significant for Sarcoidosis (follows with Rheumatology) on methotrexate, HTN, dyslipidemia who presented to the [facility] with complaints of recurrent heart palpitations, chest pain, and dizziness/NAVA. She remained stable while in the ED. Labs including CBC, CMP, high sen trop were unremarkable. ECG showed sinus rhythm with sinus arrhythmia and new incomplete RBBB. The ED staff spoke with Dr. Torres who asked for a non-con CT of the chest and admission to Medicine for further evaluation. At the time of the exam the patient was sitting in bed in no acute distress with her son sitting bedside. She states that she started to develop increased HTN, heart palpitations, NAVA, and intermittent chest discomfort over the past 2 months. She has had her dose of Losartan increased and was started on metoprolol with some improvement in symptoms. She was seen by Dr. Torres in the Cardiology Clinic on 05/29/23 who ordered a holter monitor and advised the patient to come to the ED for worsening or persistent symptoms. Last night the patient noticed substernal chest discomfort with radiation into the right chest. She has been experiencing this chest discomfort intermittently over the past 2 months. The pain is often exacerbated with lying flat and improved with sitting upright and taking Tums. She woke up this am and was still experiencing the pain, prompting ED evaluation. The patient denies radiation of the pain to other parts of her body and denies recent fever, chills, productive cough, neck/facial pain, abd pain, nausea, vomiting, dysuria, hematuria, melena, diarrhea, LE swelling, and recent trauma. She is a full code and would want her and son to make medical decisions for her if she cannot make decisions for herself. Please refer to Dr. Muñiz's attestation for any changes to the treatment plan Principal Diagnosis mitral valve regurgitation Discharge Exam pt was not seen on the day of discharge by myself was seen by cardiology but could not nicolasa until i was able to see her cardiology did call me and assure me that pt was stable Discharge Data Allergies Allergy/AdvReac Type Severity Reaction Status Date / Time ibuprofen Allergy Intermediate Hives Verified 05/29/23 09:30 celecoxib [From Celebrex] Allergy Mild GI issues Verified 05/29/23 09:30 Consultations 06/17/23 14:28 Consult Cardiology Routine Procedures Performed Operation Date: 06/19/23 08:00 Actual Procedures p Cineradiography w/Routine Exam - Tong Torres MD, PhD p Cath, Coronaries ONLY (no LV) - Tong Torres MD, PhD s Ultrasound Vascular Access - Tong Torres MD, PhD 1. Normal epicardial coronary arteries with tortuosity suggestive of uncontrolled hypertension. 2. Guideline directed medical therapy for primary prevention of coronary disease. 3. Continue workup for potential sarcoid heart disease and probable referral for mitral valve repair. 's/6 transthoracic echocardiogram shows moderate mitral valve prolapse especially of the anterior leaflet. Prolapse of the posterior mitral leaflet with severe mitral regurgitation. No evidence of systolic flow reversal. Left atrium is moderately dilated moderate tricuspid regurg and right ventricular systolic pressure is elevated Ordered Studies Chest CT 06/17/23 13:50 CT chest diagnostic wo con CT DOSE: 338.55 mGy.cm CLINICAL HISTORY: 67 years-old Female with chest pain, palpitations. Acute chest pain with cardiac palpitations TECHNIQUE: Multiaxial CT images of the chest were performed without contrast. A dose lowering technique was utilized adhering to the principles of ALARA. COMPARISON: Radiographs 05/10/2023 FINDINGS: Unremarkable thyroid. No lymphadenopathy. Mild cardiomegaly. Mild coronary artery calcifications. Left ventricular apical mural fibrofatty changes suggestive of prior infarct. Trace pericardial effusion. No thoracic aortic aneurysm. There is no pneumothorax, pleural effusion or overt pulmonary edema. Mild dependent subsegmental bibasilar atelectasis versus scarring. There are no suspicious pulmonary nodule or mass is identified. Central airways are patent. No acute upper abdominal abnormality. Unremarkable soft tissues. Mild chronic- appearing thoracic wedge deformities. No acute fracture. IMPRESSION: Mild cardiomegaly without acute process of the chest. ACT 112: Negative or not required by law. Electronically signed by: Rustam Tapia M.D. 06/17/2023 2:51 PM Hospital Course (1) Chest pain: -troponin without elevation on trend chest pain felt to be musculoskeletal. 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 Discharge Plan Discharge Items Patient Disposition: Home - Self-Care Reason For Visit: CHEST PAIN Discharge Diagnosis: SEVERE MR normal coronaries sarcoid Activity: Per Instructions section Non-emergency contact: Commuter Train Operator Call non-emergency contact if: you have any medication questions, your symptoms worsen, your pain is not controlled, you have a fever, your wound has increased redness and your wound has increased drainage Follow-up/Referrals: Alisa Caruso CRNP [Primary Care Provider] - Diet: Heart Healthy Addtl Attending Provider Instructions: ACTIVITY RECOMMENDATIONS: Excess manipulation of the wrist should be avoided for the next 24-48 hours. * No lifting over 2 pounds (approximately a 1/2 gallon of milk) with the utilized arm for 24 hours. * No strenuous activity such as bowling or tennis for 3 days. * Keep the site of the procedure covered with a bandage for 24 hours. *You may shower the day after the procedure. Do not take a tub bath or submerge the puncture site in water for the next 3 days. *Do not operate any motorized equipment for 3 days. SPECIAL CARE INSTRUCTIONS: The site may be slightly bruised and sore following your procedure. Should any of the following occur, contact the Dr. who performed your procedure. 1. Redness/inflammation, swelling, chills, or fever, or colored drainage at procedure site within 3-7 days after your procedure. 2. Coldness, discoloration, ongoing numbness, severe pain, or swelling. Expect mild tingling of hand and tenderness at the puncture site for up to three days. If this persists beyond three days, or other symptoms develop, notify the Dr. who performed your procedure. BLEEDING: If the procedure site on your wrist begins to bleed, do not panic 1. Place 1 or 2 fingers firmly just slightly above the insertion site to stop the bleeding. You may be able to feel your pulse as you hold pressure. 2. Lift your finger after 5 minutes to see if the bleeding has stopped. 3. Once the bleeding has stopped, gently wipe the wrist area clean with a bandage. * If the bleeding from your wrist does not stop after 10 minutes, or if there is a large amount of bleeding or spurting, call 911 (do not drive yourself to the hospital). SKIN IRRITATION: * You may experience some redness and/or swelling in the area where radiation was administered. If any skin irritation occurs, please contact your family physician. FOLLOW UP VISIT: Keep any scheduled doctor appointments. Pending Studies at Discharge: No Stand-Alone Forms: Anesthesia/Sedation, Adult, [facility], Smoking Cessation Medications and DC Order Prescriptions: New hydrochlorothiazide 25 mg Tablet 25 mg PO QAM Qty: 90 3RF Continued methotrexate sodium 2.5 mg tablet 15 mg PO .COMPLEX Qty: 75 3RF Patient Comments: TAKES ON FRIDAYS Rx Instructions: 15 mg orally take once weekly; fridays zoledronic [id number] [Reclast] 5 mg/100 mL piggyback See Rx Instructions IV .annually Qty: 100 0RF Rx Instructions: 5 mg/100 ml intravenously ANNUALLY; multivitamin Tablet 1 tab PO QDL turmeric 2 cap PO QDL metoprolol succinate 25 mg tablet extended release 24 hr 25 mg PO QAM olmesartan 40 mg tablet 40 mg PO QAM rosuvastatin 10 mg tablet 10 mg PO QAM vitamin B complex Tablet 1 tab PO QAM calcium citrate-vitamin D3 [Citracal + D Maximum] 315 mg-6.25 mcg (250 unit) Tablet 2 tab PO QAM cranberry extract [Cranberry Concentrate] 500 mg Capsule 500 mg PO QDL folic acid 1 mg tablet 1 mg PO QAM magnesium 250 mg Tablet 250 mg PO HS potassium 99 mg Tablet 99 mg PO HS Discharge Orders: Discharge Order (Routine); Ordered 06/19/23 Ordered By: Keith Medina Admission Data Admit Date/Time: 06/17/23 14:27 Attending Provider: Keith Medina Admit Provider: Remington Muñiz Primary Care Provider: Alisa Caruso Other Providers: Tong Torres Other Interventions: Discharge Summary Assessment (RN) Last Done: 06/19/23 15:05 Coding Level of Care Code 17954 IN/OBS DISCH 30 MIN/LESS Diagnoses Chest pain R07.9 Dyspnea R06.00 Hypertension I10 Dyslipidemia E78.5 History of sarcoidosis Z86.2
[2023-06-21] MEDS ORDERED: metHOTREXate sodium 2.5 MG TAB PO SCH (09:00)
== END 2023-06-19 15:15 | disposition home or self-care (01) ==
LOC: ED 09:43 → 2W 09:43 → SUATTDRO 14:27 → 2W 16:07
PROC: CLB.CCO (2023-06-19 08:00)
DX: E78.5 Hyperlipidemia, unspecified; R07.9 Chest pain, unspecified; R06.09 Other forms of dyspnea; I34.0 Nonrheumatic mitral (valve) insufficiency; Z88.6 Allergy status to analgesic agent; Z86.2 Personal history of diseases of the blood and blood-forming organs and certain disorders involving the immune mechanism; Z82.49 Family history of ischemic heart disease and other diseases of the circulatory system; Z79.899 Other long term (current) drug therapy; R00.2 Palpitations; R42 Dizziness and giddiness; I10 Essential (primary) hypertension